=== PATIENT | female | born 1940 | race Caucasian/White ===

== ENCOUNTER 2017-10-19 10:47 | Inpatient (IN) | payer MEDICARE, OTHER ==
[~2017-10-19 10:47] MED LIST: CEFAZOLIN 2 Gram 2 GM/50 ML BAG IVPB ONE; CELECOXIB 100 MG CAPSULE PO ONE; FAMOTIDINE 20MG TABLET PO ONE; MECLIZINE 25 MG TABLET PO ONE; METOCLOPRAMIDE 10 MG TABLET PO ONE; VANCOMYCIN HCL 1,000 MG in 0.9 % SODIUM CHLORIDE 250ML 250 ML IVPB ONE
[2017-10-19 11:51] LABS: ABO GROUP A; ANTIBODY SCREEN NEGATIVE (NEGATIVE); RH TYPE NEGATIVE
[2017-10-19] MEDS ORDERED: HYDROMORPHONE HCL 2 MG/ML VIAL IM PRN (15:08)
[2017-10-19] MEDS ORDERED: KETOROLAC 30 MG/ML VIAL IVP PRN ×2 (15:08)
[2017-10-19] MEDS ORDERED: AL HYDROX/MAG HYDROX 30ML UD PO PRN (15:08)
[2017-10-19] MEDS ORDERED: HYDROCODONE/APAP 10/325 TABLET PO PRN (15:08)
[2017-10-19] MEDS ORDERED: BISACODYL 10 MG SUPP RC PRN (15:08)
[2017-10-19] MEDS ORDERED: ONDANSETRON HCL IV 4 MG/2 ML VIAL IVP PRN (15:08)
[2017-10-19] MEDS ORDERED: MAGNESIUM HYDROXIDE 30 ML UDC PO PRN (15:08)
[2017-10-19] MEDS ORDERED: DIPHENHYDRAMINE HCL 25 MG CAPSULE PO PRN (15:08)
[2017-10-19] MEDS ORDERED: ZOLPIDEM TARTRATE 5 MG TABLET PO PRN (15:08)
[2017-10-19] MEDS ORDERED: ACETAMINOPHEN W/ CODEINE 300MG/60MG TABLET PO PRN ×2 (15:08)
[2017-10-19] MEDS ORDERED: ACETAMINOPHEN 325 MG TAB PO PRN (15:08)
[2017-10-19] MEDS ORDERED: NALOXONE 0.4 MG/1 ML VIAL IVP PRN (15:08)
[2017-10-19] MEDS ORDERED: HYDROMORPHONE HCL 1MG/ML **SYRINGE IM PRN (15:08)
[2017-10-19] MEDS ORDERED: HYDROMORPHONE HCL 2 MG/ML VIAL IV ONE (16:04)
[2017-10-19] MEDS ORDERED: FENTANYL PF 100MCG/2ML VIAL IV ONE (16:04)
[2017-10-19] MEDS ORDERED: 0.9 % SODIUM CHLORIDE 10 ML VIAL IVP ONE (16:04)
[2017-10-19] MEDS ORDERED: TRANEXAMIC ACID 1,000 MG/10 ML ML IV ONE ×2 (16:04)
[2017-10-19] MEDS ORDERED: PROPOFOL 10 MG/ML VIAL IV ONE (16:04)
[2017-10-19] MEDS ORDERED: MIDAZOLAM HCL 2MG/2ML VIAL IV ONE (16:04)
[2017-10-19] MEDS ORDERED: BUPIVACAINE 0.75% W/EPI MPF 30ML VIAL IVP ONE (16:04)
[2017-10-19] MEDS ORDERED: EPHEDRINE SULFATE 50 MG/ML ML IV ONE (16:04)
[2017-10-19] MEDS ORDERED: PNEUM 13-VAL/PF 0.5 ML IM ONE (16:47)
[2017-10-19] MEDS: POTASSIUM CHLORIDE/D5-0.9%NACL 20 MEQ/1,000 ML BAG IV SCH ×2 (17:52→22:37)
--- NOTE | 2017-10-19 19:24 | Operative Note ---
DATE OF SURGERY: 10/19/2017 PREOPERATIVE DIAGNOSIS: Degenerative change of the right hip. POSTOPERATIVE DIAGNOSIS: Degenerative change of the right hip. OPERATION: Cementless right total hip arthroplasty using [employer] components, with a size 54 no-hole Reflection cup, a 35 degree offset 32 mm diameter highly crosslinked liner, a size 13 high offset cementless Synergy stem with a +12 [place] chrome head. STAFF SURGEON: Ezekiel Huang MD ANESTHESIA: Spinal. PREPARATION: ChloraPrep. INDIVIDUAL CONSIDERATIONS: None. PROCEDURE: The patient was taken to the Operating Room and placed supine on the operating room table. She had a successful induction with spinal anesthetic. She was then placed on her side, right side up, and her right leg and hip were prepped and draped in the usual fashion. The patient had a direct posterior approach to the hip. Sharp dissection carried down through skin and subcutaneous tissue. Small veins were coagulated with a Bovie. The tensor gluteal fascia was opened along the entire length of the incision, and deep retractors were placed. Short external rotators were identified at piriformis fossa and removed exposing the posterior capsule. Posterior capsulectomy was performed and the hip was dislocated posteriorly. She had exposed bone in the femoral head and in the acetabulum. A femoral neck cut was then made freehand with an oscillating saw about a fingerbreadth above the lesser troch. A rim capsulectomy was performed. Starting with a 45 mm reamer to ream to the medial wall, I went and reamed to introitus, which was 53 purse, 54 cup. I slightly under-reamed to 52. After irrigation, I impacted a size 54 no-hole Reflection cup in 20 degrees of forward flexion and 40 degrees of abduction using the extraarticular alignment guide and bony landmarks. There was solid cementless fixation. A center cap screw was placed and then I impacted a 35 degree offset liner with the offset primarily sitting posteriorly. This gave an excellent stable acetabular construct and this was packed off. The proximal femur was delivered into the wound. A box-cutting osteotome was used to remove proximal metaphyseal bone. I started mid-stem reaming for an [place] stem but at 9 mm, it was a tight fit and I couldn't even barely get it to get down the canal, so I had to switch over to a Synergy and mid-stem reaming to 11. I broached to 11, dialed anteversion to about 25 to 30 degrees. I calcar reamed and then at this point, it was either a +8 or a +12. I went ahead and removed the broach and after thorough irrigation, impacted the high offset size 11 Synergy stem with solid wedge fit. I found that with a +12, I had absolute stability. This lady had a large pedunculus and I was worried about her levering off her pedunculus, so I put this in to get me the maximum stability. Even with her leg flexed maximally up into her abdomen, it would hold and with her flexed 90 degrees and internally rotated, up to 80 degrees. Finally at 90 it would dislocate but at 90 degrees of flexion and 80 degrees of internal rotation, I still had stability. Absolute anterior stability and maximum extension in external rotation. After irrigation, I dried the [place] taper, impacted the +12 [place] chrome head, and reduced the hip with similar stability. Hemostasis was obtained with a Bovie. The sciatic nerve was inspected and found to be completely intact. The patient did receive 1 g of tranexamic acid IV prior. I mixed 1 g of tranexamic acid with 30 mL of saline and placed this deep in the fascia. The tensioned gluteal fascia was then closed with a running #2 Quill. The subcu was closed in layers with running 0 Quill. The skin was closed with alla. I did infiltrate the skin and subcutaneous tissue prior to placing the alla with 33 mL 0.75% Marcaine with Epinephrine and a sterile [place] compressive Aquacel-type dressing was applied. The patient tolerated the procedure well. Needle and sponge counts were correct. Estimated blood loss was about 500 mL. We will check her hemoglobin in the morning. There were no complications. JOB NUMBER: [id number] [facility]
[2017-10-19] MEDS: CEFAZOLIN 2 Gram 2 GM/50 ML BAG IVPB SCH (20:03)
[2017-10-19] MEDS: DOCUSATE SODIUM 100 MG CAPSULE PO SCH ×2 (20:57→21:54)
[2017-10-19] MEDS: HYDROCODONE/APAP 10/325 TABLET PO PRN (20:57)
[2017-10-20] MEDS: CEFAZOLIN 2 Gram 2 GM/50 ML BAG IVPB SCH ×2 (04:14→11:04)
[2017-10-20 06:35] LABS: HEMOGLOBIN 8.9 gm/dl (11.6-16.0)
[2017-10-20] MEDS: HYDROCODONE/APAP 10/325 TABLET PO PRN ×2 (06:36→14:51)
[2017-10-20 06:51] LABS: BLOOD UREA NITROGEN 11 mg/dL (8-23); CREATININE 0.7 mg/dL (0.5-0.9); EST GLOMERULAR FILTRATION RATE > 60 mL/min; GLUCOSE,RANDOM 126 mg/dL (74-109)
[2017-10-20] MEDS: POTASSIUM CHLORIDE/D5-0.9%NACL 20 MEQ/1,000 ML BAG IV SCH ×2 (08:56)
[2017-10-20] MEDS: DOCUSATE SODIUM 100 MG CAPSULE PO SCH (09:06)
--- NOTE | 2017-10-20 09:31 | Rehab Evaluation ---
Patient Information - Patient Information Diagnosis: R SLIM Ordered Treatment: PT Evaluate and Treat Status: Initial Evaluation Date of Surgery: 10/19/17 Past Medical/Surgical Hx: PAST MEDICAL/SURGICAL HISTORY Past Surgical History Spinal cyst removal Left knee replacement Right breast biopsy Bilateral cataracts cyst removal right ankle hyst PMH - Respiratory Hx Respiratory Disorders No PMH - Cardiovascular Hx Cardiovascular Disorders No Exercise Tolerance Fair Comment: uses cane PMH - Neuro Hx Neurological Disorders No PMH - GI Hx Gastrointestinal Disorders Yes Hx Gastroesophageal Reflux Yes PMH - Hx Genitourinary Disorders No PMH - Endocrine Hx Endocrine Disorders No Hx Diabetes No Hx Thyroid Disease No PMH - Musculoskeletal Hx Musculoskeletal Disorders Yes Hx Arthritis Yes Hx Back Injury Yes Hx Fibromyalgia No Hx Gout No Hx Musculoskeletal Disease No Hx Osteoporosis No PMH - Psych Hx Psychiatric Problems Yes Hx Depression Yes: mild PMH - Hematology/Oncology Hx Hematology/Oncology No Disorders Premorbid Status: Detail (The patient was previously independent with all mobility prior to surgery.) Social History: Detail (The patient lives in a single story home with spouse. The patient's home is handicapped accessible with a ramp at the enterance, walk in shower with a seat and elevated toilet seat. The patient has a standard walker and standard cane.) Precautions: [place], Other (Contact precautions , SLIM precautions and WBAT on the R LE.) - Time With Patient Treatment Procedures: Detail (Initial evaluation and gait training.) Subjective Information - Subjective Information Per Patient (The patient's primary complaint was of stiffness in R hip. The patient had minimal pain.) Objective Data - Mental Status Patient Orientation: Oriented x3 - Visual Perception Appears within normal limits for therapeutic activities - ROM Within normal limits (The patient's L LE AROM was WNL. The patient's R LE AROM was within SLIM precautions.) - Strength/Tone Not within normal limits (The patient's R LE strength was not tested secondary to s/p surgery, however the patient was able to lift R LE out of bed. The patient's L LE strength was generally 4+ to 5/5.) - Bed Mobility Independent (The patient was independent with supine to and from sit.) - Transfers Independent (The patient was independent with sit to stand with occasional verbal cues to push up from the surface and not the walker. The patient was independent with toilet transfer with use of grab bar and elevated toilet seat.) - Balance Balance Sitting: Good Balance Standing: Good - Sensation Intact - Gait Detail (The patient ambulated with standard walker a distance of 13 feet x 2 and 60 feet independently , WBAT on the R LE with occasional verbal cues for walker placement. The patient exhibited shortness of breath after ambulating 60 feet. The patient declined ambulation on stairs due to no steps at home. The patient was able to verbalize the proper technique.) Therapy Assessment - Therapy Assessment Detail (The patient was independent with bed mobility, transfers and ambulation on levels. The patient declined stair climbing secondary to having a ramp at home. The patient was independent with SLIM exercises and SLIM precautions.) Patient Education - Patient Education Teaching Topic: Equipment Use, Exercise/Activity (The patient completed SLIM exercises including: ankle pumps, quad sets, hamstring sets, hip abduction supine, heel slides and gluteal sets.), Precautions (SLIM precautions) Response: Return Demonstration Teaching Method: Demonstration, Handout Teaching Recipient: Patient Barriers To Learning: Age Related Problem List - Problem List Physical Therapy Problem List: Detail (Decreased R hip strength as to be expected following surgery and minimal shortness of breath with distance ambulation.) Goals - Goals Physical Therapy Goals: Patient has met all inpatient PT goals. Prognosis - Prognosis Good Plan - Plan Physical Therapy Plan: The patient is discharged from inpatient PT due to all goals have been met. The patient is to receive Home PT services.
--- NOTE | 2017-10-20 09:55 | Rehab Evaluation ---
Patient Information - Patient Information Diagnosis: R SLIM Ordered Treatment: OT Evaluate and Treat Status: Initial Evaluation Surgery: Yes (right SLIM) Date of Surgery: 10/19/17 Past Medical/Surgical Hx: PAST MEDICAL/SURGICAL HISTORY Past Surgical History Spinal cyst removal Left knee replacement Right breast biopsy Bilateral cataracts cyst removal right ankle hyst PMH - Respiratory Hx Respiratory Disorders No PMH - Cardiovascular Hx Cardiovascular Disorders No Exercise Tolerance Fair Comment: uses cane PMH - Neuro Hx Neurological Disorders No PMH - GI Hx Gastrointestinal Disorders Yes Hx Gastroesophageal Reflux Yes PMH - Hx Genitourinary Disorders No PMH - Endocrine Hx Endocrine Disorders No Hx Diabetes No Hx Thyroid Disease No PMH - Musculoskeletal Hx Musculoskeletal Disorders Yes Hx Arthritis Yes Hx Back Injury Yes Hx Fibromyalgia No Hx Gout No Hx Musculoskeletal Disease No Hx Osteoporosis No PMH - Psych Hx Psychiatric Problems Yes Hx Depression Yes: mild PMH - Hematology/Oncology Hx Hematology/Oncology No Disorders Premorbid Status: Detail (Patient lives with spouse in a 2 story house with basement, she stays on main floor. She has a ramp at the entrance. She has a walk in shower with shower chair and grab bars and an elevated toilet seat, no grab bar. Prior to surgery she was Ind with all ADLs and IADLs. She has a standard walker, shower chair, wheelchair, straight cane, crutches and hip kit.) Precautions: [place], Other (Isolation precautions , SLIM precautions and WBAT on the R LE.) - Time With Patient Total Time Spent With Patient (Min): 40 Treatment Procedures: Detail (OT eval low complexity) Subjective Information - Subjective Information Per Patient Objective Data - Pain Pain Present: Yes (0-1/10 pain in right hip) - Mental Status Patient Orientation: Oriented x3 - Visual Perception Appears within normal limits for therapeutic activities (Pt wears glasses) - ROM Within normal limits (Cory UE AROM WNL) - Strength/Tone Within normal limits (Cory UE strength WNL) - Coordination Appears within normal limits for therapeutic activities - Bed Mobility Independent (Ind with supine to sit) - Transfers Independent (Ind with sit to stand from EOB, chair and commode.) - Balance Balance Sitting: Good Balance Standing: Good - Sensation Intact - Gait Detail (Pt ambulatory in room with standard walker Indly.) - ADL's/IADL's Detail (Pt educated and able to demonstrate Ind with total body dressing using levelman, sock aid and long shoe horn while maintaining hip precautions.) Therapy Assessment - Therapy Assessment Detail (Pt is safe and Ind with ADLs using adaptive equipment while maintaining hip precautions.) Problem List - Problem List Occupational Therapy Problem List: Detail (No current OT problems identified.) Goals - Goals Occupational Therapy Goals: No current IP OT goals identified. Prognosis - Prognosis Good Plan - Plan Occupational Therapy Plan: No further IP OT recommended at this time. Thank you for this referral.
[2017-10-20] MEDS ORDERED: FERROUS SULFATE 325 MG TAB PO SCH (10:00)
[2017-10-20] MEDS ORDERED: PANTOPRAZOLE SODIUM 40 MG TABLET PO SCH (10:00)
[2017-10-20] MEDS ORDERED: RIVAROXABAN 10 MG TABLET PO SCH (10:00)
--- NOTE | 2017-10-20 19:53 | Discharge Summary ---
DATE OF ADMISSION: 10/19/17 DATE OF DISCHARGE: 10/20/17 DATE OF SURGERY: 10/19/17 HISTORY: Camelia is a delightful 77-year-old female who presents with end- stage arthrosis of her right hip. She was admitted after a right total hip arthroplasty. Postoperatively she did well. Her hospital course was unremarkable. Her discharge hemoglobin was 8.9. She did not require a transfusion. DISCHARGE INSTRUCTIONS: The plan is to discharge her to home in the care of her family. Home PT and Visiting Nurses have been arranged. Her sutures will be removed by the Visiting Nurse in two weeks. She will follow-up at my office in four weeks. She will continue to take Xarelto for DVT prophylaxis for 30 days and then she will also continue with her low-dose Aspirin. Her discharge condition was good. FINAL DIAGNOSIS/PRIMARY DIAGNOSIS: END-STAGE ARTHROSIS OF THE RIGHT HIP. SECONDARY DIAGNOSES: OPERATIVE BLOOD LOSS ANEMIA. OPERATIONS AND PROCEDURES: CEMENTLESS RIGHT TOTAL HIP ARTHROPLASTY. DISCHARGE CONDITION: GOOD. JOB NUMBER: [id number] [facility]
== END 2017-10-20 15:15 | disposition home health service (06) | DRG 470 ==
LOC: MEDSURG 10:47
PROVIDERS: ADMIT Orthopaedic Surgery; ATTEND Orthopaedic Surgery
PROC: 0SR906A Replacement of Right Hip Joint with Oxidized Zirconium on Polyethylene Synthetic Substitute, Uncemented, Open Approach (ICD-10-PCS; principal; 2017-10-19 13:00)
DX: M16.11 Unilateral primary osteoarthritis, right hip (principal); Z87.891 Personal history of nicotine dependence
CPT/HCPCS: 80048; 85014; 85018; 86850; 86900; 86901; 90670; 94760; 97165; J1885; J3480; J3490; J7050

== ENCOUNTER 2017-11-19 18:02 | Emergency (ER) | payer MEDICARE, OTHER ==
[2017-11-19] MEDS ORDERED: HYDROMORPHONE HCL 1 MG/ML SYRINGE IVP ONE ×3 (18:08→19:38)
--- NOTE | 2017-11-19 18:12 | Emergency Department Record ---
History of Present Illness - General Chief complaint: Pain Stated complaint: RT SIDE HIP PAIN Time Seen by Provider: 11/19/17 18:07 Source: Patient Mode of Arrival: EMS Limitations: No limitations - History of Present Illness Initial comments: The patient is here due to R hip pain for about an hour. She had a hip replacement about a month ago and has been doing well. She was in a recliner chair and lifted her legs up and felt her R hip pop out. Since she has had severe pain in the hip. There was no fall or any injury. MD Complaint: Joint pain Onset/Timin -: Hour(s) Location: Right History of Same: No Radiation: None - Related Data Home Medications Medication Instructions Recorded Confirmed Last Taken Aspirin [Ecotrin] 81 mg PO DAILY 11/19/17 11/19/17 Unknown Allergies Allergy/AdvReac Type Severity Reaction Status Date / Time No Known Drug Allergies Allergy Verified 01/19/16 16:13 Review of Systems Constitutional: Denies: Chills, Fever Eyes: Denies: Eye discharge ENT: Denies: Congestion Respiratory: Denies: Cough, Dyspnea Past Medical History - SOCIAL HISTORY Smoking Status: Former smoker Drug Use: None - RESPIRATORY Hx Respiratory Disorders: No - CARDIOVASCULAR Hx Cardio Disorders: No Comment:: uses cane - NEURO Hx Neuro Disorders: No - GI Hx GI Disorders: Yes Hx Reflux: Yes - Hx Genitourinary Disorders: No - ENDOCRINE Hx Endocrine Disorders: No Hx Diabetes: No Hx Thyroid Disease: No - MUSCULOSKELETAL Hx Musculoskeletal Disorders: Yes Hx Arthritis: Yes Hx Back Injury: Yes Hx Fibromyalgia: No Hx Gout: No Hx Musculoskeletal Disease: No Hx Osteoporosis: No - PSYCH Hx Psych Problems: Yes Hx Depression: Yes (mild) - HEMATOLOGY/ONCOLOGY Hx Hematology/Oncology Disorders: No Family Medical History Hx Cancer: Brother/Sister Hx Diabetes: Mother, Brother/Sister Hx Heart Disease: Mother Hx HTN: Mother, Brother/Sister Hx Kidney Disease: Mother, Brother/Sister Hx Resp Disorders: Father, Brother/Sister *Resp Comment: asthma Hx Stroke: Mother Physical Exam - General General Appearance: Alert, Oriented x3, Cooperative, No acute distress - Head Head exam: Atraumatic, Normocephalic, Normal inspection - Eye Eye exam: Normal appearance, PERRL - ENT Throat exam: Normal inspection. negative: Tonsillar erythema, Tonsillar exudate - Neck Neck exam: Normal inspection, Full ROM. negative: Tenderness - Respiratory Respiratory exam: Normal lung sounds bilaterally. negative: Respiratory distress - Cardiovascular Cardiovascular Exam: Regular rate, Normal rhythm, Normal heart sounds - Extremities Extremities exam: Tenderness (The R hip is very tender.). negative: Normal inspection, Full ROM - Neurological Neurological exam: Alert. negative: Motor sensory deficit Course - Reevaluation(s) Reevaluation #1: On recheck the patient appears to be going in and out of a bigeminy ryhthm. Due to that fact I am reluctant to do her conscious sedation here at [facility]. I did discuss the case with Dr. Ezekiel Huang who is her Orthopedic Surgeon and he suggestx she be transferred to [facility] in [place]. I then did talk with Dr. Luz who does accept the patient in transfer in an ER to ER transfer. 11/19/17 19:25 Medical Decision Making - Data Complexity MDM Data: X-Ray Ordered and/or Reviewed, EKG Ordered and/or Reviewed - EKG Data -: EKG Interpreted by Me (Bigeminy at 90. No obvious ischemia.) - Radiology Data Radiology results: Report reviewed (R Hip: Superior dislocation.) Disposition Disposition: Transfer Clinical Impression: Hip dislocation, right Qualifiers: Encounter type: initial encounter Qualified Code(s): S73.004A - Unspecified dislocation of right hip, initial encounter Disposition: Acute Care Hospital Transfer Transfer To: [facility] Reason For Transfer: Hip Disolocation Accepting Physician: Sukh Time Discussed w/Accepting Physician: 19:32 Condition: (2) Stable Forms: Patient Portal Access Time of Disposition: 19:32 Quality - Quality Measures Quality Measures: N/A - Blood Pressure Screening View Details: Yes Does Patient Have Any of the Following: No, Active Dx of HTN Blood Pressure Classification: Pre-Hypertensive BP Reading Systolic Measurement: 133 Diastolic Measurement: 81 Screening for High Blood Pressure: Patient Exclusion, Hx of HTN [[id number]]
--- NOTE | 2017-11-21 20:12 | RADIOLOGY REPORT ---
EXAM: HIP,UNILAT, 2-3 VIEW RIGHT HISTORY: RIGHT HIP PAIN, HAD RIGHT HIP SLIM ONE MONTH AGO. TECHNIQUE: AP pelvis, AP lateral right hip. COMPARISON: None. ENCOUNTER: Initial. FINDINGS: The patient is post-op right SLIM. There is superior dislocation of the femoral component of the right SLIM relative to the acetabular component. No obvious associated fracture seen. Postreduction series suggested. IMPRESSION: POST-OP RIGHT SLIM WITH SUPERIOR DISLOCATION OF THE FEMORAL COMPONENT OF THE RIGHT SLIM. JOB NUMBER: [id number] [facility]
== END 2017-11-19 20:50 | disposition short-term general hospital (02) ==
LOC: ER 18:02
DX: T84.020A Dislocation of internal right hip prosthesis, initial encounter (principal); R00.8 Other abnormalities of heart beat; X50.0XXA Overexertion from strenuous movement or load, initial encounter
CPT/HCPCS: 99285 ×2; 96376; 96374; 73502; 93005; 93010; J1170